=== PATIENT | female | born 1995 | race Caucasian/White ===

== ENCOUNTER 2017-03-03 11:49 | Emergency (ER) | payer MEDICAID ==
[~2017-03-03] VITALS: Ht 160 cm; Wt 90.8 kg
[~2017-03-03 11:49] MED LIST: ALBU-136 IH; BECL0.0464 INH; PRON IH
[2017-03-03 11:53] VITALS: BP 146/81
--- NOTE | 2017-03-03 12:30 | NUR ---
PATIENT TO ER BED 8.
--- NOTE | 2017-03-03 12:35 | NUR ---
21F BIB SELF C/O SHORTNESS OF BREATH X 3 DAYS; BL WHEEZES HEARD ON INSPIRATION/EXPIRATION; PT C/O PRODUCTIVE COUGH W/ PHLEGM X 1 WEEK; HX:ASTHMA; PT C/O MID-STERNAL CHEST PRESSURE, RADIATING TO BL BACK, 10/10 X 3 DAYS; A&OX4, PT C/O NAUSEA X YESTERDAY, BUT DENIES VOMITING/DIARRHEA AT THIS TIME; ABDOMEN SOFT, NON-TENDER, ACTIVE BOWEL SOUNDS X4 QAUDRANTS; STEADY GAIT; PT STATES GAVE VAGINAL 2 WEEKS AGO AT [facility] W/ NO ISSUES; PT RESTING IN BED W/ HOB ELEVATED AND IN LOWEST POSITION; POSITIONED FOR COMFORT; ER MD MADE AWARE OF STATUS. WILL CONTINUE TO MONITOR.
--- NOTE | 2017-03-03 13:00 | NUR ---
Patient being evaluated by physician at bedside.
--- NOTE | 2017-03-03 13:02 | NUR ---
Gene trinh in [facility] - 03/03/17 at 1311 by SELIN PT AMBULATED TO BED 8 AT THIS TIME.
[2017-03-03] MEDS ORDERED: ALBUTEROL SULFATE/IPRATROPIU 3 ML SOL IH ONE (13:15)
[2017-03-03] MEDS ORDERED: predniSONE 20 MG TAB PO ONE ×3 (13:15)
--- NOTE | 2017-03-03 14:55 | NUR ---
Patient appears to be resting comfortably in bed. Vital Signs within normal limits. Respirations even and unlabored. WILL CONTINUE TO MONITOR.
[2017-03-03 15:58] VITALS: BP 128/56
--- NOTE | 2017-03-03 15:58 | NUR ---
Patient discharged with v/s stable. Written and verbal after care instructions given and explained. Patient alert, oriented and verbalized understanding of instructions. Ambulatory with steady gait. All questions addressed prior to discharge. ID band removed. Patient advised to follow up with PMD. Rx of ALBUTEROL SULFATE, VENTOLIN HFA, MEDROL 4MG & QVAR given. Patient educated on indication of medication including possible reaction and side effects. Opportunity to ask questions provided and answered.
== END 2017-03-03 15:58 | disposition home or self-care (01) ==
LOC: MED 11:49
DX: O99.53 Diseases of the respiratory system complicating the puerperium (principal); J45.901 Unspecified asthma with (acute) exacerbation; J44.9 Chronic obstructive pulmonary disease, unspecified
CPT/HCPCS: 94640; 99284; J7512; J7620

== ENCOUNTER 2017-03-22 03:30 | Emergency (ER) | payer MEDICAID ==
[~2017-03-22] VITALS: Ht 160 cm; Wt 93.0 kg
[~2017-03-22 03:30] MED LIST changes: -ALBU-136 IH; +ALBUTEROL0.09 MG/A1; -BECL0.0464 INH; +CIPRO250 MG PO; +PROAIR HFA0.09 MG/Ac IH; -PRON IH; +PROVENTIL0.09 MG/Ac IH; +PROVENTIL2.5 MG/3 M IH; +PROVENTIL2.5 MG/3 M INH; +QVAR HFA MDI7.3 G1 INH; +ZOFRAN ODT4 MG PO
[2017-03-22 03:33] VITALS: BP 132/69
--- NOTE | 2017-03-22 03:40 | NUR ---
TO ER BED 3
--- NOTE | 2017-03-22 03:43 | NUR ---
Patient being evaluated by physician at bedside.
[2017-03-22] MEDS ORDERED: MAG SULF 2000 MG/WATER PREMIX 50 ML IV ONE (03:50)
[2017-03-22] MEDS ORDERED: methylPREDNISolone SS 125 MG/2 ML VIAL IVP ONE (03:50)
[2017-03-22] MEDS ORDERED: ALBUTEROL SULFATE/IPRATROPIU 3 ML SOL IH ONE (03:50)
--- NOTE | 2017-03-22 03:50 | NUR ---
PATIENT PRESENTS TO ED WITH C/O CHEST HURTING WHEN COUGHS. COUGH X 1 WEEK. HAS TRIED USING INHALER AND BREATHING TREATMENT AT HOME WITH NO RELIEF. . PT DENIES N/V/D; SKIN IS PINK/WARM/DRY; AAOX4 WITH EVEN AND STEADY GAIT; LUNGS CLEAR BL; HR EVEN AND REGULAR; PT DENIES ANY FEVER AT THIS TIME; PATIENT STATES PAIN OF 10/10 AT THIS TIME; VSS; PATIENT POSITIONED FOR COMFORT; HOB ELEVATED; BEDRAILS UP X2; BED DOWN. ER MD MADE AWARE OF PT STATUS.
--- NOTE | 2017-03-22 04:00 | NUR ---
PIV STARTED AND LABS DRAWN.
--- NOTE | 2017-03-22 04:05 | NUR ---
Respiratory Therapist at bedside for respiratory intervention. Patient tolerated .
--- NOTE | 2017-03-22 04:30 | NUR ---
XRAY DONE AT BEDSIDE
--- NOTE | 2017-03-22 06:24 | NUR ---
Patient discharged with v/s stable. Written and verbal after care instructions given and explained. Patient alert, oriented and verbalized understanding of instructions. Ambulatory with steady gait. All questions addressed prior to discharge. ID band removed. Patient advised to follow up with PMD. Rx of MEDROL, ALBUTEROL SULFATE, PULMICORT FLEXHALER AND AZITHROMYCIN given. Patient educated on indication of medication including possible reaction and side effects. Opportunity to ask questions provided and answered.
[2017-03-22 06:26] VITALS: BP 128/70
== END 2017-03-22 06:26 | disposition home or self-care (01) ==
LOC: MED 03:30
DX: J45.901 Unspecified asthma with (acute) exacerbation (principal)
CPT/HCPCS: 36415; 71010; 80053; 84484; 85025; 94640; 96365; 96366; 96375; 99285; J2930; J3475; J7030; J7620; Q0092

== ENCOUNTER 2017-05-05 16:52 | Emergency (ER) | payer MEDICAID ==
[~2017-05-05] VITALS: Ht 160 cm; Wt 93.9 kg
[~2017-05-05 16:52] MED LIST changes: +ALBU-136 IH; -ALBUTEROL0.09 MG/A1; +BECL0.0464 INH; -CIPRO250 MG PO; -PROAIR HFA0.09 MG/Ac IH; +PRON IH; -PROVENTIL0.09 MG/Ac IH; -PROVENTIL2.5 MG/3 M IH; -PROVENTIL2.5 MG/3 M INH; -QVAR HFA MDI7.3 G1 INH; -ZOFRAN ODT4 MG PO
[2017-05-05 16:58] VITALS: BP 145/92
--- NOTE | 2017-05-05 20:30 | NUR ---
TO ER BED 8
--- NOTE | 2017-05-05 20:44 | NUR ---
21Y/F PATIENT PRESENTS TO ED WITH C/O SOB/COUGH X 2 DAYS . PT STATESHX. ASTHMA, 2 SAYS STARTED HAVING SOB WITH COUGH, NO RELIEF BY USING INHALER. DENIES N/V/D; SKIN IS PINK/WARM/DRY; AAOX4 WITH EVEN AND STEADY GAIT; LUNGS WHEEZES BL; HR EVEN AND REGULAR; PT DENIES ANY FEVER, OR COUGH AT THIS TIME; C/O CHEST TIGHNESS, PATIENT STATES PAIN OF 9/10 AT THIS TIME; VSS; PATIENT POSITIONED FOR COMFORT; HOB ELEVATED; BEDRAILS UP X2; BED DOWN. ER MD MADE AWARE OF PT STATUS.
[2017-05-05] MEDS ORDERED: ALBUTEROL SULFATE/IPRATROPIU 3 ML SOL IH ONE ×2 (21:05→21:28)
[2017-05-05] MEDS ORDERED: methylPREDNISolone SS 125 MG in WATER STERILE 2 ML IM ONE (21:05)
[2017-05-05] MEDS ORDERED: methylPREDNISolone SS 125 MG/2 ML VIAL ONE (21:29)
[2017-05-05 21:55] VITALS: BP 136/92
--- NOTE | 2017-05-05 21:55 | NUR ---
Patient discharged with v/s stable. Written and verbal after care instructions given and explained. Patient alert, oriented and verbalized understanding of instructions. Ambulatory with steady gait. All questions addressed prior to discharge. ID band removed. Patient advised to follow up with PMD. Rx of QVar inhaler, Albuterol inhaler, and Albuterol nebulizer doses given. Patient educated on indication of medication including possible reaction and side effects. Opportunity to ask questions provided and answered.
== END 2017-05-05 21:55 | disposition home or self-care (01) ==
LOC: MED 16:52
DX: J45.901 Unspecified asthma with (acute) exacerbation (principal)
CPT/HCPCS: 71010; 94640; 96372; 99283; J2930; J7620; 99284

== ENCOUNTER 2017-06-16 10:35 | Emergency (ER) | payer MEDICAID ==
[~2017-06-16] VITALS: Ht 160 cm; Wt 92.1 kg
[2017-06-16 10:37] VITALS: BP 152/89
--- NOTE | 2017-06-16 10:45 | NUR ---
Patient ambulated to bed 04.
--- NOTE | 2017-06-16 10:46 | NUR ---
21F BIB SELF C/O COUGH AT NIGHT,HEADACHE & MID-STERNAL CHEST PAIN X 2 DAYS; PT STATES WAS DYING HAIR WHEN PAIN OCCURED. HX: ASTHMA. DENIES N/V/D; SKIN IS PINK/WARM/DRY; AAOX4 WITH EVEN AND STEADY GAIT; LUNGS WHEEZING BL; HR EVEN AND REGULAR; PT DENIES ANY FEVER, CP, SOB, OR COUGH AT THIS TIME; PATIENT STATES PAIN OF 8/10 AT THIS TIME; VSS; PATIENT POSITIONED FOR COMFORT; HOB ELEVATED; BEDRAILS UP X2; BED DOWN. ER MD MADE AWARE OF PT STATUS.
--- NOTE | 2017-06-16 11:02 | NUR ---
Gene trinh in EDM - 06/16/17 at 1103 by MED1 L BIG TOE NAIL EXTRACTION & SUTURE L FOOT DONE BY HARRIET BUCKLEY. PT TOLERATED PROCEDURE WELL.
--- NOTE | 2017-06-16 11:16 | NUR ---
Dr. Grewal evaluating patient at bedside.
[2017-06-16] MEDS ORDERED: predniSONE 20 MG TAB PO ONE (11:20)
[2017-06-16] MEDS ORDERED: ALBUTEROL 0.083% 2.5 MG/3 ML NEBU INH ONE (11:20)
[2017-06-16] MEDS ORDERED: ALBUTEROL SULFATE/IPRATROPIU 3 ML SOL IH ONE (11:20)
--- NOTE | 2017-06-16 11:24 | NUR ---
GAVE MED ORDER. NO N/V NOTED AT THIS TIME.
--- NOTE | 2017-06-16 11:31 | NUR ---
RT AT BEDSIDE FOR 1ST BREATHING TREATMENT.
--- NOTE | 2017-06-16 11:32 | NUR ---
ADMITTING DX: CHEST PAIN HX: ASTHMA LOC AWAKE AND ALERT RESPONSIVE TO WAFER CUTTER VERBAL COMMANDS IN HFW POSIION SKIN TONE PINK EDUCATION PROVIDED TO PATIENT WITH ACKNOWLEDGEMENT ON HHN THERAPY AND RESPIRATORY DRUGS HHN THERAPY GIVEN ORDERED ENCOURAGED PATIENT FOR DEEP BREATHING DURING THERAPY TOLERATED WELL WITH ADVERES REACTION NOTED
--- NOTE | 2017-06-16 11:49 | NUR ---
Patient appears to be resting comfortably in bed. BP 134/68, PULSE OX 96 W/ OXIGEN 2L/M NC. Respirations even and unlabored.WILL CONTINUE TO MONITOR. Addendum: 06/16/17 at 1151 by MED1 PT STS CHEST PAIN 01/29.
[2017-06-16] MEDS ORDERED: KETOROLAC 60 MG/2 ML VIAL IM ONE (11:55)
--- NOTE | 2017-06-16 12:00 | NUR ---
PT C/O CHEST PAIN 01/29. ADMINISTERED PAIN MED ORDER.
[2017-06-16 12:15] VITALS: BP 128/68
--- NOTE | 2017-06-16 12:16 | NUR ---
Patient discharged with 142/77; DENIES HEADACHE OR DIZZINESS AT THIS TIME. MD AWARE. Written and verbal after care instructions given and explained. Patient alert, oriented and verbalized understanding of instructions. Ambulatory with steady gait. All questions addressed prior to discharge. ID band removed. Patient advised to follow up with PMD. Rx of ALBUTEROL 90MCG/ACTUATION AEROSOL, PREDNISONE & ALBUTEROL SULFATE0.083% SOLUTION FOR INHALOOOATION given. Patient educated on indication of medication including possible reaction and side effects. Opportunity to ask questions provided and answered.
== END 2017-06-16 12:16 | disposition home or self-care (01) ==
LOC: MED 10:35
DX: J45.901 Unspecified asthma with (acute) exacerbation (principal)
CPT/HCPCS: 81002; 81025; 93005; 94640; 96372; 99284; J1885; J7512; J7613; J7620

== ENCOUNTER 2017-07-11 02:13 | Emergency (ER) | payer MEDICAID ==
[~2017-07-11] VITALS: Ht 160 cm; Wt 91.6 kg
[2017-07-11 02:21] VITALS: BP 130/79
--- NOTE | 2017-07-11 02:25 | NUR ---
To Bed 6
--- NOTE | 2017-07-11 03:00 | NUR ---
Patient being evaluated by physician at bedside.
[2017-07-11] MEDS ORDERED: KETOROLAC 60 MG/2 ML VIAL IM ONE (03:05)
[2017-07-11 03:30] VITALS: BP 130/79
--- NOTE | 2017-07-11 03:30 | NUR ---
Patient discharged with v/s stable. Written and verbal after care instructions given and explained. Patient alert, oriented and verbalized understanding of instructions. Ambulatory with steady gait. All questions addressed prior to discharge. ID band removed. Patient advised to follow up with PMD. Rx of MOTRIN, CORTISPORIN given. Patient educated on indication of medication including possible reaction and side effects. Opportunity to ask questions provided and answered.
== END 2017-07-11 03:30 | disposition home or self-care (01) ==
LOC: MED 02:13
DX: H60.92 Unspecified otitis externa, left ear (principal); J02.9 Acute pharyngitis, unspecified; J45.909 Unspecified asthma, uncomplicated
CPT/HCPCS: 96372; 99283; J1885

== ENCOUNTER 2017-07-26 06:25 | Emergency (ER) | payer MEDICAID ==
[~2017-07-26] VITALS: Ht 160 cm; Wt 94.9 kg
[2017-07-26 06:33] VITALS: BP 134/90
[2017-07-26] MEDS ORDERED: ALBUTEROL SULFATE/IPRATROPIU 3 ML SOL IH ONE ×2 (06:40→06:55)
[2017-07-26] MEDS ORDERED: predniSONE 20 MG TAB PO ONE (06:45)
--- NOTE | 2017-07-26 06:46 | NUR ---
PATIENT PRESENTS TO ED WITH C/O CP WHEN COUGH X 3 DAYS . PT DENIES N/V/D; SKIN IS PINK/WARM/DRY; AAOX4 WITH EVEN AND STEADY GAIT; LUNGS CLEAR BL; HR EVEN AND REGULAR; PT DENIES ANY FEVER, SOB, AT THIS TIME; PATIENT STATES PAIN OF 10/10 AT THIS TIME; VSS; PATIENT POSITIONED FOR COMFORT; HOB ELEVATED; BEDRAILS UP X2; BED DOWN. ER MD MADE AWARE OF PT STATUS.
[2017-07-26] MEDS ORDERED: predniSONE 10 MG TAB PO ONE (06:55)
[2017-07-26] MEDS ORDERED: predniSONE 10 MG TAB ONE (06:56)
--- NOTE | 2017-07-26 07:04 | NUR ---
RECEIVE REPORT FROM DARRELL SOLOMON. PT STS 0/10 PAIN.Patient appears to be resting comfortably in bed. BP 133/72; DENIES HEADACHE OR DIZINESS, MD AWARE. Respirations even and unlabored.WILL CONTINUE TO MONITOR.
--- NOTE | 2017-07-26 07:12 | NUR ---
RT AT BEDSIDE FOR 2ND BREATHING TREATMENT.
[2017-07-26 07:22] VITALS: BP 129/78
--- NOTE | 2017-07-26 07:22 | NUR ---
Patient discharged with v/s stable. Written and verbal after care instructions given and explained. Patient alert, oriented and verbalized understanding of instructions. Ambulatory with steady gait. All questions addressed prior to discharge. ID band removed. Patient advised to follow up with PMD. Rx of ALBUTEROL & PREDNISONE given. Patient educated on indication of medication including possible reaction and side effects. Opportunity to ask questions provided and answered.
== END 2017-07-26 07:22 | disposition home or self-care (01) ==
LOC: MED 06:25
DX: J45.901 Unspecified asthma with (acute) exacerbation (principal); R03.0 Elevated blood-pressure reading, without diagnosis of hypertension
CPT/HCPCS: 93005; 94640; 94760; 99284; J7512; J7620

== ENCOUNTER 2017-08-14 11:26 | Emergency (ER) | payer MEDICAID ==
[~2017-08-14] VITALS: Ht 160 cm; Wt 91.6 kg
[2017-08-14 11:31] VITALS: BP 124/75
[2017-08-14] MEDS ORDERED: NACL 0.9% 1,000 ML IV ONE (11:50)
[2017-08-14] MEDS ORDERED: ALBUTEROL SULFATE/IPRATROPIU 3 ML SOL IH ONE (11:50)
[2017-08-14] MEDS ORDERED: methylPREDNISolone SS 125 MG in WATER STERILE 2 ML IV ONE (11:50)
[2017-08-14 11:59] LABS: BASOPHILS % (AUTO) 0.3 % (0.0-2.0); EOSINOPHILS # (AUTO) 0.6 K/uL (0-0.4); HEMATOCRIT 40.8 % (36-48); HEMOGLOBIN 13.1 g/dL (12.0-16.0); LYMPHOCYTES % (AUTO) 32.7 % (20.5-51.1); MEAN CORPUSCULAR HEMOGLOBIN 25 pg (27-31); MEAN CORPUSCULAR HGB CONC 32 g/dL (33-37); MEAN CORPUSCULAR VOLUME 78 fL (80-94); MONOCYTES # (AUTO) 0.4 K/uL (0.8-1.0); MONOCYTES % (AUTO) 4.7 % (1.7-9.3); NEUTROPHILS # (AUTO) 5.2 K/uL (1.8-7.7); NEUTROPHILS % (AUTO) 55.3 % (42.2-75.2); PLATELET COUNT (AUTO) 250 K/uL (140-450); RED BLOOD CELL COUNT(AUTO) 5.25 MIL/uL (4.20-5.40); RED CELL DISTRIBUTION WIDTH 14.1 % (11.6-13.7); WHITE BLOOD COUNT (AUTO) 9.2 K/uL (4.8-10.8)
[2017-08-14 12:14] LABS: CARBON DIOXIDE 24.4 mmol/L (21-32); CREATININE 0.8 mg/dL (0.6-1.3); POTASSIUM 3.4 mmol/L (3.5-5.1)
[2017-08-14 12:20] LABS: ALBUMIN 3.5 g/dL (3.4-5.0); TOTAL BILIRUBIN 0.2 mg/dL (0.0-1.0)
[2017-08-14 13:30] VITALS: BP 122/78
== END 2017-08-14 13:30 | disposition home or self-care (01) ==
LOC: MED 11:26
DX: J45.901 Unspecified asthma with (acute) exacerbation (principal); R07.89 Other chest pain; Z79.899 Other long term (current) drug therapy
CPT/HCPCS: 36415; 80053; 83880; 84484; 85025; 85379; 94640; 96361; 96374; 99284; J2930; J7030; J7620

== ENCOUNTER 2017-08-29 07:24 | Emergency (ER) | payer MEDICAID ==
[~2017-08-29] VITALS: Ht 160 cm; Wt 98.5 kg
[2017-08-29 07:28] VITALS: BP 149/86
--- NOTE | 2017-08-29 07:30 | NUR ---
PT AMBULATED TO BED 5.
[2017-08-29] MEDS ORDERED: predniSONE 20 MG TAB PO ONE (07:40)
[2017-08-29] MEDS ORDERED: ALBUTEROL SULFATE/IPRATROPIU 3 ML SOL IH ONE (07:40)
--- NOTE | 2017-08-29 07:45 | NUR ---
Patient being evaluated by physician at bedside.
--- NOTE | 2017-08-29 07:51 | NUR ---
22/F PRESENT TO ER C/O DIFFICULTY BREATHING x TODAY @ 0500. PT STATES SHE HAS HX OF ASTHMA. USING RX INHALER AND BREATHING TREATMENT AT HOME, BUT DOES NOT HELP. PT DENIES PAIN AT THIS TIME. AAOx4, PERRJOHANA. VSS . ERMD NOTIFIED OF PATIENT STATUS.
--- NOTE | 2017-08-29 07:58 | NUR ---
ADMITTING DX: ADULT-ASTHMA AWAKE AND ALERT RESPONSIVE TO DATA REPORTING ANALYST VERBAL COMMANDS HFW POSITION EDUCATION PROVIDED WITH ACKNOWLEDGEMENT ON HHN THERAPY AND RESPIRATORY DRUG HHN THERAPY GIVEN ORDERED ENCOURAGED PATIENT FOR DEEP BREATHING AND COUGH DURING THERAPY TOLERATED WELL WITHOUT INCIDENT
--- NOTE | 2017-08-29 08:02 | NUR ---
CUSTOMER FIELD REPRESENTATIVE AT BEDSIDE.
--- NOTE | 2017-08-29 09:16 | NUR ---
Patient discharged with v/s stable. Written and verbal after care instructions given and explained. Patient alert, oriented and verbalized understanding of instructions. Ambulatory with steady gait. All questions addressed prior to discharge. ID band removed. Patient advised to follow up with PMD. Rx of VENTOLIN HFA 90MCG/ACTUATION, QVAR 80MCG/ACTUATION AND MEDROL DOSEPAK 4MG TABLET given. Patient educated on indication of medication including possible reaction and side effects. Opportunity to ask questions provided and answered.
[2017-08-29 09:17] VITALS: BP 132/81
== END 2017-08-29 09:16 | disposition home or self-care (01) ==
LOC: MED 07:24
DX: J45.901 Unspecified asthma with (acute) exacerbation (principal)
CPT/HCPCS: 94640; 99283; J7512; J7620

== ENCOUNTER 2017-09-24 05:39 | Emergency (ER) | payer MEDICAID ==
[~2017-09-24] VITALS: Ht 160 cm; Wt 99.1 kg
[2017-09-24 05:42] VITALS: BP 139/90
[2017-09-24] MEDS ORDERED: predniSONE 20 MG TAB PO ONE (05:50)
[2017-09-24] MEDS ORDERED: ALBUTEROL SULFATE/IPRATROPIU 3 ML SOL IH ONE (05:50)
--- NOTE | 2017-09-24 05:50 | NUR ---
Patient ambulated to bed 6. RN evaluating patient at bedside.
--- NOTE | 2017-09-24 05:59 | NUR ---
RT at bedside receiving breathing treatment.
--- NOTE | 2017-09-24 06:00 | NUR ---
22/F c/o SOB and chest pain only with cough at 0500 this morning. Pt c/o tightness to chest, only with cough. Wheezing throughout. No labored breathing. No use of accessory muscels. Speaking full sentences. AOX4, ambulatory with steady gait. VSS.
--- NOTE | 2017-09-24 06:07 | NUR ---
Dr. Conway evaluating patient at bedside.
--- NOTE | 2017-09-24 06:31 | NUR ---
X-Ray at bedside.
[2017-09-24 07:11] VITALS: BP 132/80
--- NOTE | 2017-09-24 07:11 | NUR ---
Patient discharged with v/s stable. Written and verbal after care instructions given and explained. Patient alert, oriented and verbalized understanding of instructions. Ambulatory with steady gait. All questions addressed prior to discharge. ID band removed. Patient advised to follow up with PMD. Rx of Azithromycin, Albuterol Sulfate, Prednisone given. Patient educated on indication of medication including possible reaction and side effects. Opportunity to ask questions provided and answered.
== END 2017-09-24 07:11 | disposition home or self-care (01) ==
LOC: MED 05:39
DX: J45.901 Unspecified asthma with (acute) exacerbation (principal)
CPT/HCPCS: 71010; 81025; 94640; 99283; J7512; J7620; Q0092

== ENCOUNTER 2017-10-07 04:35 | Emergency (ER) | payer MEDICAID ==
[~2017-10-07] VITALS: Ht 160 cm; Wt 100.2 kg
[2017-10-07 04:38] VITALS: BP 145/90
--- NOTE | 2017-10-07 04:46 | NUR ---
TO ER BED 12
--- NOTE | 2017-10-07 04:50 | NUR ---
Patient being evaluated by DR. ESCOBAR at bedside.
[2017-10-07] MEDS ORDERED: methylPREDNISolone SS 125 MG in WATER STERILE 2 ML IM ONE (04:55)
[2017-10-07] MEDS ORDERED: ALBUTEROL SULFATE/IPRATROPIU 3 ML SOL IH ONE ×2 (04:55→05:55)
--- NOTE | 2017-10-07 04:55 | NUR ---
22Y/F PT. PRESENTS TO ED WITH C/O CHEST PAIN X 2HRS. PT. STATES CHEST TIGHNESS WITH COUGH X 2 HRS. HX. ASTHMA, RUN OUT OF MED. AAO X4, AMBULATORY WITH STEADY GAIT. RESPIRATIONS ROOM AIR, EVEN AND UNLABORED, BL LUNGS WHEEZES, O2 SAT 99%. C/O CHEST TIGHNESS 05/31. VSS, ER MADE AWARE OF PT. STATUS.
[2017-10-07 06:19] VITALS: BP 130/81
--- NOTE | 2017-10-07 06:19 | NUR ---
Patient discharged with v/s stable. Written and verbal after care instructions given and explained. Patient alert, oriented and verbalized understanding of instructions. Ambulatory with steady gait. All questions addressed prior to discharge. ID band removed. Patient advised to follow up with PMD. Rx of ATROVENT 18 MCG/ACTUATION INHALATION, PREDNISONE 50 MG given. Patient educated on indication of medication including possible reaction and side effects. Opportunity to ask questions provided and answered.
== END 2017-10-07 06:19 | disposition home or self-care (01) ==
LOC: MED 04:35
DX: J20.9 Acute bronchitis, unspecified (principal); R03.0 Elevated blood-pressure reading, without diagnosis of hypertension; J45.909 Unspecified asthma, uncomplicated; Z79.899 Other long term (current) drug therapy
CPT/HCPCS: 71010; 93005; 94640; 96372; 99284; J2930; J7620; Q0092

== ENCOUNTER 2017-10-18 07:03 | Emergency (ER) | payer MEDICAID ==
[~2017-10-18] VITALS: Ht 162.6 cm; Wt 10.2 kg
[2017-10-18 07:19] VITALS: BP 128/76
--- NOTE | 2017-10-18 07:37 | NUR ---
PATIENT PRESENTS TO ED WITH cough, sob, wheezing . PT STATES . DENIES N/V/D; SKIN IS PINK/WARM/DRY; AAOX4 WITH EVEN AND STEADY GAIT; LUNGS CLEAR BL; HR EVEN AND REGULAR; PATIENT STATES PAIN OF 0/10 AT THIS TIME; VSS; PATIENT POSITIONED FOR COMFORT; HOB ELEVATED; BEDRAILS UP X2; BED DOWN. ER MD MADE AWARE OF PT STATUS.
[2017-10-18] MEDS: predniSONE 20 MG TAB PO ONE (07:43)
[2017-10-18] MEDS: ALBUTEROL 0.083% 2.5 MG/3 ML NEBU INH ONE (07:46)
[2017-10-18] MEDS: IPRATROPIUM 0.02% 0.5 MG/2.5 ML NEBU INH ONE (07:46)
--- NOTE | 2017-10-18 09:02 | NUR ---
Patient discharged with v/s stable. Written and verbal after care instructions given and explained. Patient alert, oriented and verbalized understanding of instructions. Ambulatory with steady gait. All questions addressed prior to discharge. ID band removed. Patient advised to follow up with PMD. Rx of prednisone/albuterol given. Patient educated on indication of medication including possible reaction and side effects. Opportunity to ask questions provided and answered. pt denies sob--speaking with me in full clear speech, no accessory muscle use noted.
[2017-10-18 09:03] VITALS: BP 144/88
== END 2017-10-18 09:02 | disposition home or self-care (01) ==
LOC: MED 07:03
DX: J45.901 Unspecified asthma with (acute) exacerbation (principal); J06.9 Acute upper respiratory infection, unspecified
CPT/HCPCS: 94640; 99283; J7512; J7613; J7644

== ENCOUNTER 2017-10-26 11:52 | Emergency (ER) | payer MEDICAID ==
[~2017-10-26] VITALS: Ht 160 cm; Wt 99.8 kg
[2017-10-26 11:56] VITALS: BP 159/83
--- NOTE | 2017-10-26 12:36 | NUR ---
Patient to bed 08.
--- NOTE | 2017-10-26 12:41 | NUR ---
PT IS 22 Y/O HF, CAME IN WITH HER FOR C/O SHORTNESS OF BREATH SINCE THIS MORNING, PT HX ASTHMA, CURRENTLY TAKING MED FOR ASTHMA VENTOLIN AT HOME, PT IS WHEEZIG ON INS AND OUT DURING AUSCULTATION. PT IS BREATHING EVEN AD REGULAR. IS AA/O X4.
--- NOTE | 2017-10-26 13:15 | NUR ---
Dr. Le evaluating patient at bedside.
[2017-10-26] MEDS ORDERED: IPRATROPIUM 0.02% 0.5 MG/2.5 ML NEBU INH ONE (13:20)
[2017-10-26] MEDS ORDERED: ALBUTEROL 0.083% 2.5 MG/3 ML NEBU INH ONE (13:20)
[2017-10-26] MEDS ORDERED: predniSONE 20 MG TAB PO ONE (13:20)
--- NOTE | 2017-10-26 13:31 | NUR ---
Respiratory Therapist at bedside for respiratory intervention.
[2017-10-26 14:33] VITALS: BP 118/76
--- NOTE | 2017-10-26 14:33 | NUR ---
Patient discharged with v/s stable. Written and verbal after care instructions given and explained. Patient alert, oriented and verbalized understanding of instructions. Ambulatory with steady gait. All questions addressed prior to discharge. ID band removed. Patient advised to follow up with PMD. Rx of PREDNISONE& VENTOLIN given. Patient educated on indication of medication including possible reaction and side effects. Opportunity to ask questions provided and answered.
== END 2017-10-26 14:33 | disposition home or self-care (01) ==
LOC: MED 11:52
DX: J45.901 Unspecified asthma with (acute) exacerbation (principal); R03.0 Elevated blood-pressure reading, without diagnosis of hypertension; R94.31 Abnormal electrocardiogram [ECG] [EKG]; Z79.891 Long term (current) use of opiate analgesic
CPT/HCPCS: 93005; 94640; 99283; J7512; J7613; J7644

== ENCOUNTER 2018-12-24 22:25 | Emergency (ER) | payer MEDICAID ==
[~2018-12-24] VITALS: Ht 160 cm; Wt 100.2 kg
[2018-12-24 22:34] VITALS: BP 134/87
--- NOTE | 2018-12-24 22:40 | NUR ---
PATIENT PRESENTS TO ED WITH C/O OF COUGH NON -PRODUCTIVE SINCE TODAY . PT STATES SHE HAD CHEST PAIN WHEN COUGHING . DENIES N/V/D; SKIN IS PINK/WARM/DRY; AAOX4 WITH EVEN AND STEADY GAIT; LUNGS CLEAR BL; HR EVEN AND REGULAR; PT DENIES ANY FEVER, CP, SOB, OR COUGH AT THIS TIME; PATIENT STATES PAIN OF 0/10 AT THIS TIME; VSS; PATIENT POSITIONED FOR COMFORT; HOB ELEVATED; BEDRAILS UP X2; BED DOWN. ER MD MADE AWARE OF PT STATUS.
--- NOTE | 2018-12-24 22:46 | NUR ---
EKG PERFORMED AT BEDSIDE. PT COVERED IN GOWN DURING PROCEDURE
[2018-12-24] MEDS ORDERED: ALBUTEROL SULFATE/IPRATROPIU 3 ML SOL IH ONE (23:15)
--- NOTE | 2018-12-24 23:45 | NUR ---
Patient discharged with v/s stable. Written and verbal after care instructions given and explained. Patient alert, oriented and verbalized understanding of instructions. Ambulatory with steady gait. All questions addressed prior to discharge. ID band removed. Patient advised to follow up with PMD. Rx of given Prednisone, Azithromyzin. Patient educated on indication of medication including possible reaction and side effects. Opportunity to ask questions provided and answered.
[2018-12-25 00:48] VITALS: BP 106/64
== END 2018-12-24 23:45 | disposition home or self-care (01) ==
LOC: MED 22:25
DX: J20.9 Acute bronchitis, unspecified (principal); R03.0 Elevated blood-pressure reading, without diagnosis of hypertension; J45.909 Unspecified asthma, uncomplicated; Z79.899 Other long term (current) drug therapy
CPT/HCPCS: 71045; 93005; 94640; 99283; J7620; Q0092; 81002; 81025

== ENCOUNTER 2019-05-10 01:08 | Emergency (ER) | payer MEDICAID ==
[~2019-05-10] VITALS: Ht 160 cm; Wt 102.1 kg
[2019-05-10 01:20] VITALS: BP 135/78
--- NOTE | 2019-05-10 01:23 | NUR ---
TO LOBBY A/W BED AMBULATORY
--- NOTE | 2019-05-10 03:26 | NUR ---
PT AMBULATED TO BED 1
--- NOTE | 2019-05-10 04:03 | NUR ---
23 Y/O F PRESENTED TO ED WITH C/O R EAR PAIN X 3DAYS. 10/10 PAIN, PAIN DOESNT RADIATE. C/O NASAL CONGESTION, FEVER, AND CHILLS ACCOMPANYING THE R EAR PAIN. NO REDNESS NOTED TO R EAR. TYMPANIC MEMBRANE INTACT. NO DISCHARGE NOTED. SELF MEDICATED WITH TYLENOL AT MIDNIGHT. ERMD NOTIFIED. WILL CONTINUE TO MONITOR.
[2019-05-10] MEDS ORDERED: KETOROLAC 60 MG/2 ML VIAL IM ONE (04:50)
--- NOTE | 2019-05-10 05:11 | NUR ---
Patient discharged with v/s stable. Written and verbal after care instructions given and explained. Patient alert, oriented and verbalized understanding of instructions. Ambulatory with steady gait. All questions addressed prior to discharge. ID band removed. Patient advised to follow up with PMD. Rx of Prednisone, motrin, and cortisporin given. Patient educated on indication of medication including possible reaction and side effects. Opportunity to ask questions provided and answered.
== END 2019-05-10 05:11 | disposition home or self-care (01) ==
LOC: MED 01:08
DX: H60.91 Unspecified otitis externa, right ear (principal); J45.909 Unspecified asthma, uncomplicated; Z79.899 Other long term (current) drug therapy
CPT/HCPCS: 96372; 99283; J1885

== ENCOUNTER 2019-12-28 11:54 | Inpatient (IN) | payer MEDICAID ==
[~2019-12-28] VITALS: Ht 160 cm; Wt 97.5 kg
[2019-12-28 12:08] VITALS: BP 107/55
--- NOTE | 2019-12-28 12:21 | NUR ---
PATIENT AMBULATED TO BED 2.
--- NOTE | 2019-12-28 12:28 | NUR ---
C/O BILTERAL LOWER ABDOMINAL PAIN 10/10 WITH NAUSEA X TODAY. DENIES DYSURIA. ABDOMEN TENDER TO TOUCH IN LOWER QUADRANTS. BOWEL SOUNDS ACTIVE IN ALL 4 QUADRANTS. ABDOMEN SOFT AND ROUND. PT HR 106. PT ALERT AND AWAKE. AMBUALTORY WITH STEADY GAIT. PT DENIES VOMITING OR DIARRHEA. MED HX: ASTHMA
--- NOTE | 2019-12-28 12:30 | NUR ---
PT GAURDING BEHAVIOR, FACIAL GRIMACING
--- NOTE | 2019-12-28 12:33 | NUR ---
PT AMB TO RESTROOM FOR URINE
--- NOTE | 2019-12-28 12:48 | NUR ---
DR MANCINI AT BEDSIDE
--- NOTE | 2019-12-28 12:59 | NUR ---
REPORT GIVEN TO ALVIN RAMÍREZ
[2019-12-28] MEDS ORDERED: ONDANSETRON 4 MG/2 ML VIAL IVP ONE (13:00)
[2019-12-28] MEDS ORDERED: MORPHINE SULFATE 4 MG/ML SYR IVP ONE ×2 (13:00→15:10)
--- NOTE | 2019-12-28 13:31 | NUR ---
ULTRASOUND AT BESIDE
[2019-12-28 14:03] LABS: HEMATOCRIT 47.9 % (36-48); HEMOGLOBIN 15.4 g/dL (12.0-16.0); MEAN CORPUSCULAR HEMOGLOBIN 27 pg (27-31); MEAN CORPUSCULAR HGB CONC 32 g/dL (33-37); MEAN CORPUSCULAR VOLUME 82.2 fL (80-94); PLATELET COUNT (AUTO) 328 K/uL (140-450); RED BLOOD CELL COUNT(AUTO) 5.83 MIL/uL (4.20-5.40)
[2019-12-28 14:19] LABS: ALBUMIN 4.6 g/dL (3.4-5.0); ANION GAP 13.7 (8-16); CARBON DIOXIDE 25.4 mmol/L (21-32); CREATININE 0.7 mg/dL (0.6-1.3); POTASSIUM 4.1 mmol/L (3.5-5.1); TOTAL BILIRUBIN 0.3 mg/dL (0.0-1.0)
[2019-12-28 14:25] LABS: WHITE BLOOD COUNT (AUTO) 27.2 K/uL (4.8-10.8)
[2019-12-28 14:26] LABS: EOSINOPHILS % (MANUAL) 2 % (0-4); LYMPHOCYTES % (MANUAL) 5 % (20-46); MONOCYTES % (MANUAL) 5 % (5-12)
--- NOTE | 2019-12-28 14:34 | NUR ---
CRITICAL LAB VALUE: WBC 27.[address] MANCINI
--- NOTE | 2019-12-28 14:52 | NUR ---
PT TRANSFERRED TO CT VIA RSANDWICH, CONSENT SIGNED AT BEDSIDE
--- NOTE | 2019-12-28 15:03 | NUR ---
PT BACK FROM CT
[2019-12-28] MEDS ORDERED: NACL 0.9% 1,000 ML IV ONE (15:10)
[2019-12-28] MEDS ORDERED: PIPERACILLIN/TAZOBACTAM 3.375 GM in DEXTROSE 5% 50 ML IV ONE (15:10)
[2019-12-28] MEDS ORDERED: PIPERACILLIN/TAZOBACTAM 3.375 GM VIAL IV ONE (15:17)
[2019-12-28] MEDS: DEXT 5% /NACL 0.9% 1,000 ML IV SCH (16:43)
[2019-12-28] MEDS ORDERED: LORazepam 2 MG/ML VIAL IM/IVP PRN (16:45)
[2019-12-28] MEDS ORDERED: ACETAMINOPHEN 325 MG TAB PO PRN (16:45)
[2019-12-28] MEDS ORDERED: MORPHINE SULFATE 2 MG/ML SYR IVP PRN (16:45)
[2019-12-28] MEDS ORDERED: ALBUTEROL SULFATE/IPRATROPIU 3 ML SOL IH PRN (17:10)
[2019-12-28 17:20] VITALS: BP 117/62
--- NOTE | 2019-12-28 17:20 | NUR ---
RECEIVED PATIENT FROM ED. REPORT GIVEN BY DARRELL ESQUIVEL. PATIENT TRANSPORTED VIA W/C, AMBULATED INTO THE BED. PATIENT IS ALERT, ORIENTED X4. INTRODUCED SELF TO PATIENT AND ROOM. IV INTACT AND PATENT TO RIGHT AC. DR. MENDENHALL AT BEDSIDE. PATIENT IN STABLE CONDITION. CALL LIGHT WITHIN REACH.
--- NOTE | 2019-12-28 17:23 | NUR ---
Patient will be admitted to care of [facility]. Admited to [facility]. Will go to room 111B. Belongings list completed. Report to JINNY RAMÍREZ.
[2019-12-28 18:00] LABS: PROTHROMBIN TIME 10.2 secs (10.8-13.4)
[2019-12-28] MEDS: HYDROcodone/APAP 5/325 MG 1 TAB TAB PO PRN ×2 (18:02→22:54)
[2019-12-28 18:11] LABS: MAGNESIUM 1.5 mg/dL (1.8-2.4); PHOSPHORUS 2.9 mg/dL (2.5-4.9); THYROID STIMULATING HORMONE 0.44 uIU/mL (0.34-3.74)
--- NOTE | 2019-12-28 18:57 | NUR ---
IV ANTIBIOTIC ROCEPHIN STARTED ORDERED. PATIENT IN STABLE CONDITION. WILL ENDORSE TO NIGHT NURSE FOR CONTINUITY OF CARE.
--- NOTE | 2019-12-28 19:10 | NUR ---
PATIENT IN STABLE CONDITION. REPORT GIVEN TO NIGHT NURSE FOR CONTINUITY OF CARE.
[2019-12-28] MEDS: ALBUTEROL SULFATE/IPRATROPIU 3 ML SOL IH SCH (19:19)
[2019-12-28] MEDS: BUDESONIDE 0.25 MG/2 ML NEBU INH SCH (19:19)
--- NOTE | 2019-12-28 19:30 | NUR ---
RECEIVED REPORT FORM JONELLE RAMÍREZ DAYSHIFT NURSE AT BEDSIDE FOR CONTINUITY OF CARE, PT IN STABLE CONDITION
[2019-12-28 20:00] VITALS: BP 123/74
--- NOTE | 2019-12-28 20:00 | NUR ---
PT IN BED, SHE IS AOX4 WITH SKIN INTACT. RIGHT F/A 22G INTACT AND RUNNING D5N/S AT 80MLS/HR. MAG RIDER 1ST BAG HUNG AND IS RUNNING AT 25MLS/HR. PT V/S FOLLOWS. T 97.2 P 87 R 20 B/P 119/62 02 97% ON ROOM AIR. PT SAYS PAIN IS TOLERABLE AT A 3 /10. PT EDUCATION PROVIDED CONCERNING HER DX OF DIVERTICULITIS. PT VERBALIZED UNDERSTANDING. ALL UNIVERSAL FALLS PRECAUTIONS IN PLACE.
[2019-12-28] MEDS: MAG SULF 2000 MG/WATER PREMIX 100 ML IV SCH ×2 (20:07→21:00)
[2019-12-28] MEDS: ONDANSETRON 4 MG/2 ML VIAL IM/IVP PRN (20:13)
--- NOTE | 2019-12-28 21:00 | NUR ---
ICE CHIPS OK PER MD LOBATO.
[2019-12-28 21:54] LABS: APPEARANCE,URINE CLEAR (CLEAR); BILIRUBIN,URINE NEGATIVE (NEGATIVE); BLOOD, URINE NEGATIVE (NEGATIVE); COLOR,URINE YELLOW (YELLOW); LEUKOCYTE ESTERASE ,URINE NEGATIVE (NEGATIVE); NITRITE, URINE NEGATIVE (NEGATIVE); UGLUCOSE NEGATIVE (NEGATIVE)
--- NOTE | 2019-12-28 22:00 | NUR ---
1ST BAG OF MAG RIDER DONE, FLAGYL HUNG AND RUINING ORDERED, PT C/O OF MODERATE PAIN IN ABDOMEN AND WAS GIVEN PO/PRN NORCO. ALL UNIVERSAL PRECAUTIONS IN PLACE.
[2019-12-28 22:02] LABS: BARBITURATE, URINE NEG. ng/ml (NEG <=200); BENZODIAZEPINE, URINE NEG. ng/mL (NEG <=200); CANNABINOID, URINE POS. ng/mL (NEG <=50); COCAINE, URINE NEG. ng/mL (NEG <=300); OPIATE, URINE NEG. ng/mL (NEG <=2000); PHENCYCLIDINE SCREEN,URINE NEG. ng/mL (NEG <=25)
[2019-12-28] MEDS: metroNIDAZOLE 500 MG/NS PREMIX 100 ML IV SCH (22:57)
--- NOTE | 2019-12-28 23:00 | NUR ---
2ND BAG OF MAG RIDER HUNG AND RUNNING ORDERED, NO S/S OF PAIN OR DISTRESS NOTED. V/S T 97.2 P 87 R 18 B/P 119/62 02 97% ON ROOM AIR. ALL UNIVERSAL FALLS PRECAUTIONS IN PLACE.
[2019-12-29] VITALS: BP 119/62
[2019-12-29] MEDS ORDERED: MAG SULF 2000 MG/WATER PREMIX 50 ML IV ONE (00:42)
--- NOTE | 2019-12-29 02:30 | NUR ---
PT IN BED ASLEEP NO S/*S OF PAIN OR DISTRESS NOTED. IV SITE INTACT AND FLUIDS ORDERED. ALL UNIVERSAL FALLS PRECAUTIONS IN PLACE.
[2019-12-29] MEDS: metroNIDAZOLE 500 MG/NS PREMIX 100 ML IV SCH ×3 (05:30→21:25)
[2019-12-29] MEDS: DEXT 5% /NACL 0.9% 1,000 ML IV SCH ×2 (05:34→17:43)
--- NOTE | 2019-12-29 06:00 | NUR ---
PT TRIED TO HAVE A BM X1 WITH NO SUCCESS. PT CAME OUT OF THE BATHROOM AND ASKED FOR MORPHINE FOR SEVERE PAIN WHICH WAS GIVEN IVP. PT ALSO GIVEN ORDERED FLAGYL. LAB DRAWS DONE AT BEDSIDE.
[2019-12-29] MEDS: ALBUTEROL SULFATE/IPRATROPIU 3 ML SOL IH SCH ×4 (06:58→21:20)
[2019-12-29] MEDS: BUDESONIDE 0.25 MG/2 ML NEBU INH SCH ×3 (06:59→21:20)
--- NOTE | 2019-12-29 07:25 | NUR ---
RECEIVED BEDSIDE SHIFT REPORT FROM MANAGER OF MAINTENANCE NURSE FOR CONTINUATION OF CARE. PATIENT COMPLAINS OF 10/10 ABDOMINAL PAIN WITH NO RELIEF FROM PRN NARCOTIC PAIN MEDICATION. LAST BM WAS 12/28/2019 AT APPROXIMATELY 2 PM, REPORTED STOOL WAS DIARRHEA. EDUCATED THE PATIENT ON THE IMPORTANCE OF REMAINING NPO FOR BOWEL REST, AND ENCOURAGED HEALTHY DIET UPON DISCHARGE TO PROMOTE A HEALTHY GUT AND PREVENT FUTURE INCIDENCE. BED IS IN LOW POSITION, CALL LIGHT ON AND WITHIN REACH WILL CONTINUE TO MONITOR.
[2019-12-29 07:37] LABS: CHOL/HDL RATIO 2.2 (1-4.5)
[2019-12-29 08:00] VITALS: BP 118/70
[2019-12-29] MEDS ORDERED: MORPHINE SULFATE 2 MG/ML SYR IVP PRN (08:30)
[2019-12-29] MEDS: HYDROcodone/APAP 5/325 MG 1 TAB TAB PO PRN ×2 (08:33→13:37)
[2019-12-29] MEDS: ONDANSETRON 4 MG/2 ML VIAL IM/IVP PRN ×2 (08:33→21:25)
[2019-12-29] MEDS: LACTOBACILLUS RHAMNOSUS GG 1 EACH CAP PO SCH (08:33)
--- NOTE | 2019-12-29 08:35 | NUR ---
PATIENT HAS BEEN SCREENED AND CATEGORIZED MODERATE NUTRITION RISK. PATIENT WILL BE SEEN WITHIN 3-5 DAYS OF ADMISSION. 12/31/19 01/02/[address]
--- NOTE | 2019-12-29 09:30 | NUR ---
PATIENT IS RESTING IN BED, MEDICATED FOR PAIN WITH NORCO, MEDICATIONS ADMINISTERED, MD ORDERED MORPHINE PRN FOR SEVERE PAIN, PATIENT WAS EDUCATED TO VERBALIZE PAIN BEFORE IT BECOMES SEVERE TO PREVENT BREAKTHROUGH PAIN, PATIENT VERBALIZED UNDERSTANDING. WILL CONTINUE TO MONITOR.
--- NOTE | 2019-12-29 12:00 | NUR ---
ROUNDS MADE, PATIENT IS ON THE PHONE WITH A FRIEND, PATIENT REPORTED BEING IN SEVERE PAIN TO THE POINT OF TEARS. PATIENT REPORTS CONSTIPATION. MEDICATION COLACE GIVEN FOR CONSTIPATION. AAOX4. BED IS IN LOW POSITION, CALL LIGHT ON AND WITHIN REACH. WILL CONTINUE TO MONITOR.
[2019-12-29 12:13] LABS: BASOPHILS # (AUTO) 0.1 K/uL (0.00-0.22); BASOPHILS % (AUTO) 0.4 % (0.0-2.0); EOSINOPHILS # (AUTO) 0.3 K/uL (0-0.4); EOSINOPHILS % (AUTO) 1.5 % (0.0-4.0); HEMATOCRIT 42.2 % (36-48); HEMOGLOBIN 13.4 g/dL (12.0-16.0); LYMPHOCYTES % (AUTO) 13.5 % (20.5-51.1); MEAN CORPUSCULAR HEMOGLOBIN 26 pg (27-31); MEAN CORPUSCULAR HGB CONC 32 g/dL (33-37); MEAN CORPUSCULAR VOLUME 83.3 fL (80-94); MONOCYTES # (AUTO) 1.5 K/uL (0.8-1.0); MONOCYTES % (AUTO) 6.8 % (1.7-9.3); NEUTROPHILS # (AUTO) 17.5 K/uL (1.8-7.7); NEUTROPHILS % (AUTO) 77.8 % (42.2-75.2); PLATELET COUNT (AUTO) 321 K/uL (140-450); RED BLOOD CELL COUNT(AUTO) 5.07 MIL/uL (4.20-5.40); RED CELL DISTRIBUTION WIDTH 15.4 % (11.6-13.7); WHITE BLOOD COUNT (AUTO) 22.5 K/uL (4.8-10.8)
[2019-12-29 12:18] LABS: ANION GAP 14.7 (8-16); CARBON DIOXIDE 24.1 mmol/L (21-32); CREATININE 0.7 mg/dL (0.6-1.3); POTASSIUM 3.8 mmol/L (3.5-5.1)
[2019-12-29] MEDS: DOCUSATE SODIUM 100 MG GELCAP PO PRN (13:37)
--- NOTE | 2019-12-29 14:32 | NUR ---
Trim Operator Note: Basic Screen: Yes High Risk DC Screen [place]: UNA Szymanski Relationship: Pre-Admission Living Arrangements: Lives with Other Prior ADL Independent Current Home Health Name/Tel: N/A Current DME/02 Name/Tel: N/A Current Hospice Name/Tel: N/A Current Dialysis Name/Tel: N/A Healthcare Decision Maker: Patient Advance Directive No Physician Orders for Life Sustaining Treatment Form No Patient/Family Have Educational Needs No Information Taught: Advance Directive Person Taught: Patient Teaching Tools: Verbal Participation Level: Refused Evaluation: Verbalizes Understanding Needs Additional Education: No Discipline: Case Mgt/Social Svcs Tentative Discharge Plan/Destination: No Needs Identified Will require assistance post discharge: No Referred to Prefitter: No Tentative Discharge Plan Summary: Patient is a 24-year-old female admitted for diverticulitis. Patient has PMHX of asthma and gestational HTN. Patient was admitted from home where she lives with significant other and two children. SW met with patient at bedside to verify demographics. Patient reports no history of mental health and no history of substance abuse. Patient's tentative discharge plan is to return home. No further needs identified. Signature: HAMLET Venegas Date: Dec 29, 2019 Time: 14:27
--- NOTE | 2019-12-29 14:35 | NUR ---
JOAN RUNNING PER PROTOCOL. ENDORSES EFFECTIVENESS OF NORCO MEDICATION. SKIN IS INTACT, AAOX4. WILL CONTINUE TO MONITOR.
[2019-12-29 16:00] VITALS: BP 115/78
--- NOTE | 2019-12-29 17:54 | NUR ---
PATIENT IS UP AND AMBULATING IN THE ROOM. DENIES BREAKTHROUGH PAIN AT THIS TIME. IV FLUID RUNNING. TOLERATING WELL. WILL CONTINUE TO MONITOR.
--- NOTE | 2019-12-29 19:35 | NUR ---
BEDSIDE SHIFT REPORT GIVEN TO INDUSTRIAL SERVICE TECHNICIAN NURSE FOR CONTINUATION OF CARE.
--- NOTE | 2019-12-29 19:40 | NUR ---
RECEIVED BEDSIDE REPORT FROM AM SHIFT RN FOR PT'S CONTINUITY OF CARE. PT IS AAOX4, AMBULATORY, VISITOR AT BEDSIDE, ON ROOM AIR, HAS RIGHT AC 22G, C/O PAIN, PT ALREADY MEDICATED. ORIENTED PT TO HOSPITAL AND SLICING MACHINE OPERATOR/TENDER ROUTINE, PT VERBALIZED UNDERSTANDING. SAFETY MEASURES IN PLACE, AND CALL LIGHT IS WITHIN REACH. WILL MONITOR PT THROUGHOUT SHIFT.
--- NOTE | 2019-12-29 21:25 | NUR ---
PT C/O NAUSEA. ADMINISTERED SCHEDULED AND PRN MEDICATIONS ORDERED. PT TOLERATED THEM WELL. PT STATES MORPHINE MIGHT BE THE ONE MAKING HER NAUSEOUS. WILL NOTIFY MD. PT'S NEEDS MET AT THIS TIME. WILL CONTINUE TO MONITOR PT.
[2019-12-30] VITALS: BP 114/62
--- NOTE | 2019-12-30 00:30 | NUR ---
VS CHECKED AND CHARTED. PT C/O ABD PAIN 03/31. ADMINISTERED PO PRN MEDICATION ORDERED. PT'S NEEDS MET AT THIS TIME. WILL CONTINUE TO MONITOR PT.
[2019-12-30] MEDS: HYDROcodone/APAP 5/325 MG 1 TAB TAB PO PRN ×2 (00:36→07:56)
--- NOTE | 2019-12-30 02:30 | NUR ---
PT LYING DOWN AWAKE, WATCHING TV. PT DENIES ANY PAIN AT THIS TIME. WILL CONTINUE TO MONITOR PT.
--- NOTE | 2019-12-30 04:30 | NUR ---
PT ASLEEP WITH NO SIGNS OF DISTRESS. WILL CONTINUE TO MONITOR PT.
[2019-12-30] MEDS: DEXT 5% /NACL 0.9% 1,000 ML IV SCH (05:22)
[2019-12-30] MEDS: metroNIDAZOLE 500 MG/NS PREMIX 100 ML IV SCH ×3 (05:22→20:47)
--- NOTE | 2019-12-30 05:22 | NUR ---
ADMINISTERED SCHEDULED IV ABX ORDERED. PT REQUESTED FOR BREATHING TMT. WILL CALL RT FOR REQUEST.
--- NOTE | 2019-12-30 06:50 | NUR ---
INFORMED PT THAT RT WILL BE COMING IN AT 0700 FOR REQUESTED BREATHING TREATMENT. PT IN STABLE CONDITION, SPOKE WITH PT, PT VERBALIZED UNDERSTANDING. WILL ENDORSE TO AM SHIFT RN FOR PT'S CONTINUITY OF CARE.
[2019-12-30 07:04] LABS: BASOPHILS # (AUTO) 0.1 K/uL (0.00-0.22); BASOPHILS % (AUTO) 0.4 % (0.0-2.0); EOSINOPHILS # (AUTO) 0.3 K/uL (0-0.4); EOSINOPHILS % (AUTO) 1.7 % (0.0-4.0); HEMATOCRIT 37.7 % (36-48); HEMOGLOBIN 12.1 g/dL (12.0-16.0); LYMPHOCYTES # (AUTO) 2.9 K/uL (2.5-16.5); LYMPHOCYTES % (AUTO) 17.4 % (20.5-51.1); MEAN CORPUSCULAR HEMOGLOBIN 26 pg (27-31); MEAN CORPUSCULAR HGB CONC 32 g/dL (33-37); MEAN CORPUSCULAR VOLUME 81.8 fL (80-94); MONOCYTES # (AUTO) 1.4 K/uL (0.8-1.0); MONOCYTES % (AUTO) 8.6 % (1.7-9.3); NEUTROPHILS # (AUTO) 11.8 K/uL (1.8-7.7); NEUTROPHILS % (AUTO) 71.9 % (42.2-75.2); PLATELET COUNT (AUTO) 294 K/uL (140-450); RED BLOOD CELL COUNT(AUTO) 4.61 MIL/uL (4.20-5.40); RED CELL DISTRIBUTION WIDTH 14.8 % (11.6-13.7); WHITE BLOOD COUNT (AUTO) 16.4 K/uL (4.8-10.8)
--- NOTE | 2019-12-30 07:10 | NUR ---
RECEIVE BEDSIDE REPORT FROM NIGHT NURSE, PT IS STABLE IN BED, RAC 22G RUNNING D51/2NS AT 80 ML, INTRODUCE SELF, UPDATE WHITEBOARD, CALL LIGHT WITHIN REACH.
[2019-12-30 07:51] LABS: ANION GAP 11.3 (8-16); CARBON DIOXIDE 26.5 mmol/L (21-32); PHOSPHORUS 3.8 mg/dL (2.5-4.9); POTASSIUM 3.8 mmol/L (3.5-5.1)
[2019-12-30 07:52] LABS: CREATININE 0.6 mg/dL (0.6-1.3)
--- NOTE | 2019-12-30 07:57 | NUR ---
GAVE NORCO FOR PAIN OG 6/10, SEVERE CRAMPING IN ABDOMEN, EDUCATION GIVEN PT TOLERATED WELL, CALL LIGHT WITHIN REACH.
[2019-12-30 08:00] VITALS: BP 137/73
[2019-12-30] MEDS: LACTOBACILLUS RHAMNOSUS GG 1 EACH CAP PO SCH (09:00)
--- NOTE | 2019-12-30 09:00 | NUR ---
GAVE ORDERED MEDICATION, EDUCATION GIVEN, PT VERBALIZE UNDERSTANDING, PT TOLERATED MEDICATION WELL, PT IS STABLE, CALL LIGHT WITHIN REACH.
[2019-12-30] MEDS ORDERED: NACL 0.9% 1,000 ML IV SCH (11:35)
--- NOTE | 2019-12-30 12:01 | NUR ---
DISCONNECTED PT FROM IV SO SHE COULD SHOWER, WALKED PT TO SHOWER, EXPLAINED SHOWER SAFETY AND HOW TO CALL FOR HELP, PT VERBALIZED UNDERSTANDING, PT WALKED WITH A STEADY GAIT TO SHOWER, PT IS STABLE, NO SIGNS OF DISTRESS NOTED, WILL CONTINUE TO MONITOR.
--- NOTE | 2019-12-30 13:51 | NUR ---
DC PLANN[age] YRS OLD FEMALE PATIENT WAS ADMITTED FROM HOME WITH A DX OF DIVERTICULITIS. PT HAS A HX OF ASTHMA. CT ABD/PELVIS SHOWED DIVERTICULITIS ,STARTED IV ROCEPHIN AND FLGYL BLOOD AND URINE CULTURE PENDING . RT PROTOCOL INITIATED , GI CONSULT SEEN BY DR PATRICK ORDERED BOWEL REST AND PAIN CONTROL AND RECOMMENDED COLONOSCOPY IN THE NEXT 2-3 MOTHS AND ADVANCED DIET. DC PLAN TO GO HOME WHEN STABLE CM TO FOLLOW.
[2019-12-30] MEDS: DOCUSATE SODIUM 100 MG GELCAP PO PRN (14:01)
[2019-12-30] MEDS: ALBUTEROL SULFATE/IPRATROPIU 3 ML SOL IH SCH ×2 (14:03→19:10)
[2019-12-30] MEDS: KETOROLAC 15 MG/ML VIAL IM PRN ×2 (14:38→20:59)
[2019-12-30] MEDS: DEXT 5% / NACL 0.45% 1,000 ML IV SCH (14:38)
--- NOTE | 2019-12-30 14:38 | NUR ---
GAVE TORADOL IM TO PT FOR ABDOMINAL PAIN OF 8/10, EDUCATION GIVEN, PT TOLERATED WELL, PT STABLE, CALL LIGHT WITHIN REACH.
[2019-12-30 16:00] VITALS: BP 131/77
--- NOTE | 2019-12-30 17:00 | NUR ---
PT RESTING IN BED, PT IS STABLE, CALL LIGHT WITHIN REACH
[2019-12-30] MEDS: BUDESONIDE 0.25 MG/2 ML NEBU INH SCH (19:10)
--- NOTE | 2019-12-30 19:30 | NUR ---
GAVE BEDSIDE REPORT TO NIGHT NURSE FOR CONTINUITY OF CARE, PT IS STABLE
--- NOTE | 2019-12-30 19:31 | NUR ---
RECEIVED BEDSIDE REPORT FROM DAY SHIFT NURSE CAMERON RN, PT STABLE, NO DISTRESS NOTED, IV TO R AC 20G PATENT INTACT, INFUSING WELL, PT ON ROOM AIR, NO SOB NOTED, PT STATED HAVING HEADACHE, WILL MEDICATE, INITIAL ASSESSMENT DONE, ALL SAFETY PRECAUTION MET, CALL LIGHT WITHIN REACH, WILL CONTINUE TO MONITOR.
--- NOTE | 2019-12-30 19:41 | NUR ---
PT C/O HEADACHE PAIN MEDICATION PER DR ORDER GIVEN, TYLENOL, PT TOLERATED WELL, NO DISTRESS NOTED, CALL LIGHT WITHIN REACH, WILL CONTINUE TO MONITOR.
--- NOTE | 2019-12-30 20:59 | NUR ---
PT C/O PAIN, HEADACHE 05/31, WAS NOT REDUCED WITH TYLENOL EARLIER, PAIN MEDICATION PER DR ORDER ADMINISTERED TORADOL, PER DR. NORMA BATEMAN TO GIVE IVP INSTEAD OF IM. PT TOLERATED WELL, NO DISTRESS NOTED, CALL LIGHT WITHIN REACH, WILL CONTINUE TO MONITOR.
--- NOTE | 2019-12-30 23:42 | NUR ---
CHECKED ON PT, PT SLEEPING, NO DISTRESS NOTED, V/S TAKEN, WNL, CALL LIGHT WITHIN REACH, WILL CONTINUE TO MONITOR.
[2019-12-31] VITALS: BP 123/46
[2019-12-31] MEDS: DEXT 5% / NACL 0.45% 1,000 ML IV SCH ×2 (02:25→09:34)
[2019-12-31] MEDS: metroNIDAZOLE 500 MG/NS PREMIX 100 ML IV SCH ×3 (04:33→20:23)
--- NOTE | 2019-12-31 04:33 | NUR ---
PT ASKED IF SHE CAN HAVE A JUICE, TALKED TO DR. GREEN WHO SAID OK FOR PT TO HAVE JUICE, TO ADVANCE TOLERATED, PT HAD 1 BOX OF JUICE, TOLERATED WELL, NO DISTRESS NOTED, CALL LIGHT WITHIN REACH, WILL CONTINUE TO MONITOR.
[2019-12-31] MEDS: KETOROLAC 15 MG/ML VIAL IM/IVP PRN (04:37)
[2019-12-31 06:23] LABS: ANION GAP 13.8 (8-16); CARBON DIOXIDE 26.8 mmol/L (21-32); CREATININE 0.7 mg/dL (0.6-1.3); POTASSIUM 3.6 mmol/L (3.5-5.1)
[2019-12-31 06:27] LABS: MAGNESIUM 1.9 mg/dL (1.8-2.4)
[2019-12-31 06:32] LABS: BASOPHILS # (AUTO) 0.1 K/uL (0.00-0.22); BASOPHILS % (AUTO) 0.7 % (0.0-2.0); EOSINOPHILS # (AUTO) 0.6 K/uL (0-0.4); EOSINOPHILS % (AUTO) 5.3 % (0.0-4.0); HEMATOCRIT 36.9 % (36-48); HEMOGLOBIN 11.8 g/dL (12.0-16.0); LYMPHOCYTES # (AUTO) 1.7 K/uL (2.5-16.5); MEAN CORPUSCULAR HEMOGLOBIN 27 pg (27-31); MEAN CORPUSCULAR HGB CONC 32 g/dL (33-37); MEAN CORPUSCULAR VOLUME 82.9 fL (80-94); MONOCYTES % (AUTO) 8.5 % (1.7-9.3); NEUTROPHILS # (AUTO) 8.6 K/uL (1.8-7.7); NEUTROPHILS % (AUTO) 71.5 % (42.2-75.2); PLATELET COUNT (AUTO) 270 K/uL (140-450); RED BLOOD CELL COUNT(AUTO) 4.46 MIL/uL (4.20-5.40); RED CELL DISTRIBUTION WIDTH 14.8 % (11.6-13.7)
--- NOTE | 2019-12-31 07:18 | NUR ---
ENDORSED TO DAY SHIFT NURSE CAMERON RN, PT STABLE, NO DISTRESS NOTED, CALL LIGHT WITHIN REACH.
--- NOTE | 2019-12-31 07:19 | NUR ---
RECEIVE BEDSIDE REPORT FROM NIGHT NURSE, PT IS ASLEEP, RESPIRATIONS ARE EVEN AND UNLABORED ON ROOM AIR, PT IS STABLE, UPDATE WHITE BOARD, R WRIST 22G RUNNING D5 1/2NS AT 80ML/H, SAFETY MEASURES IN PLACE, CALL LIGHT WITHIN REACH, WILL CONTINUE TO MONITOR.
[2019-12-31] MEDS: ALBUTEROL SULFATE/IPRATROPIU 3 ML SOL IH SCH ×3 (07:43→20:20)
[2019-12-31] MEDS: BUDESONIDE 0.25 MG/2 ML NEBU INH SCH ×2 (07:43→20:20)
[2019-12-31 08:00] VITALS: BP 126/77
[2019-12-31] MEDS: LACTOBACILLUS RHAMNOSUS GG 1 EACH CAP PO SCH (09:33)
--- NOTE | 2019-12-31 11:05 | NUR ---
PT SITTING IN BED TALKING TO FAMILY MEMBER, PT IS STABLE, NO SIGNS OF DISTRESS NOTED, RESPIRATIONS ARE EVEN AND UNLABORED, CALL LIGHT WITHIN REACH.
--- NOTE | 2019-12-31 12:38 | NUR ---
GAVE PT ORDERED MEDICATION METRONIDAZOLE, EDUCATION GIVE, PT VERBALIZE UNDERSTANDING, PT TOLERATED WELL, PT IS STABLE, CALL LIGHT WITHIN REACH.
--- NOTE | 2019-12-31 15:15 | NUR ---
PT IS RESTING IN BED, WATCHING TV, ALL NEEDS MED AT THIS TIME, NO SIGNS OF DISTRESS NOTED, RESPIRATIONS ARE EVEN AND UNLABORED Addendum: 12/31/19 at 1526 by Shala Vaca RN PT IS STABLE, CALL LIGHT WITHIN REACH
[2019-12-31 16:00] VITALS: BP 114/61
--- NOTE | 2019-12-31 17:42 | NUR ---
GAVE PT ICE CHIPS, PT IS SITTING WATCHING TV, PT IS STABLE, NO SIGNS OF RESPIRATORY DISTRESS NOTED, CALL LIGHT WITHIN REACH.
--- NOTE | 2019-12-31 19:25 | NUR ---
GAVE REPORT TO NIGHT NURSE FOR CONTINUITY OF CARE, PT IS STABLE.
--- NOTE | 2019-12-31 19:30 | NUR ---
RECEIVED BEDSIDE REPORT FROM AM SHIFT RN FOR PT'S CONTINUITY OF CARE. PT IS AAOX4, AMBULATORY, FAMILY MEMBER AT BEDSIDE, ON ROOM AIR, HAS RIGHT WRIST 22G WITH D5 1/2 NS AT 80 ML/HR, DENIES PAIN AT THIS TIME. EXPLAINED TO PT THE SENIOR ACCOUNTING CLERK ROUTINE, PT VERBALIZED UNDERSTANDING. SAFETY MEASURES IN PLACE, AND CALL LIGHT IS WITHIN REACH. WILL MONITOR PT THROUGHOUT THE SHIFT.
--- NOTE | 2019-12-31 20:23 | NUR ---
ADMINISTERED SCHEDULED IV ABX MEDICATION ORDERED. PT CURRENTLY RECEIVING BREATHING TREATMENT. PT C/O ABD PAIN 05/01. HEATING PAD IN PLACE. WILL MEDICATE PT FOR PAIN ACCORDING TO PAIN SCALE.
--- NOTE | 2019-12-31 20:28 | NUR ---
RECEIVED PT ON ROOM AIR WITH AN SP02 OF 98% AND A WHEEZING BREATH SOUNDS ON UPPER LOBES. NO RESPIRATORY DISTRESS NOTED AT THIS TIME. HHN TX GIVEN ORDERED WITH NO ADVERSE REACTION. CLEAR BREATH SOUNDS AFTER HHN TX. WILL CONITINUE TO MONITOR PT.
[2019-12-31] MEDS: HYDROcodone/APAP 5/325 MG 1 TAB TAB PO PRN (20:41)
--- NOTE | 2019-12-31 20:41 | NUR ---
ADMINISTERED PRN PO PAIN MEDICATION ORDERED. PT'S NEEDS MET AT THIS TIME. WARMING PAD IN USE. PT STATES SHE AMBULATED IN THE HALLWAY THIS AFTERNOON, HELPED WITH PAIN AND FEELING BLOATED. WILL CONTINUE TO MONITOR PT.
[2020-01-01] VITALS: BP 119/70
--- NOTE | 2020-01-01 | NUR ---
ICE PACKS Addendum: 01/01/20 at 0143 by Danelle Borja RN ADDITIONAL INFO: PT C/O PAIN ON THE IV SITE. REPORTED TO MD THAT PT IS HARD STICK. PER MD, APPLY COLD COMPRESS AND TRY TO MOVE AROUND. PT VERBALIZED UNDERSTANDING. IF PAIN IS UNRELIEVED, WILL START NEW IV INSERT.
--- NOTE | 2020-01-01 02:32 | NUR ---
MADE ROUNDS. PT ASLEEP WITH NO SIGNS OF DISTRESS. WILL CONTINUE TO MONITOR PT.
[2020-01-01] MEDS: DEXT 5% / NACL 0.45% 1,000 ML IV SCH ×2 (03:25→06:35)
--- NOTE | 2020-01-01 04:00 | NUR ---
NEW IV INSERTED: LEFT HAND 24G, DISCONTINUED THE RIGHT WRIST 22G, CATHETER TIP INTACT. ADMINISTERED SCHEDULED IV ABX ORDERED. PT TOLERATED THEM WELL. PT TEACHING GIVEN, PT VERBALIZED UNDERSTANDING. WILL CONTINUE TO MONITOR PT.
[2020-01-01] MEDS: metroNIDAZOLE 500 MG/NS PREMIX 100 ML IV SCH (04:08)
[2020-01-01] MEDS: KETOROLAC 15 MG/ML VIAL IM/IVP PRN (06:35)
--- NOTE | 2020-01-01 06:35 | NUR ---
PT C/O ABD PAIN 05/31 (FEELING BLOATED), ADMINISTERED IVP PAIN MEDICATION ORDERED. MD AT BEDSIDE, WILL ORDER SIMETHICONE FOR THE BLOATED FEELING. ASSISTED PT TO THE RESTROOM, PT TOLERATED IT WELL. WILL ENDORSE TO AM SHIFT RN FOR PT'S CONTINUITY OF CARE.
--- NOTE | 2020-01-01 07:05 | NUR ---
RECEIVED PATIENT FROM MEDICAL SCIENTIST NURSE FOR CONTINUITY OF CARE. PATIENT IS AAOX4, SAMI SPEAKING. RESPIRATIONS EVEN AND UNLABORED, ROOM AIR. VISIBLE CHEST RISE NOTED. NO EDEMA NOTED. ABDOMEN ROUND AND NONTENDER. PATIENT DENIES N/V. LAST BM 01/01/2020. REGULAR DIET. SKIN WARM, DRY, AND INTACT. IV IN THE LEFT HAND G24 RUNNING D51/2NS AT 80 ML/HR. PATIENT IS AMBULATORY. BED IN LOW POSITION. CALL LIGHT IS WITHIN REACH. WILL CONTINUE TO MONITOR
[2020-01-01] MEDS: BUDESONIDE 0.25 MG/2 ML NEBU INH SCH (07:18)
[2020-01-01] MEDS: ALBUTEROL SULFATE/IPRATROPIU 3 ML SOL IH SCH (07:18)
--- NOTE | 2020-01-01 07:51 | NUR ---
DR. SHARMA AND THE RESIDENT DOCTORS MADE ROUNDS
[2020-01-01 07:58] LABS: ANION GAP 13.2 (8-16); BASOPHILS # (AUTO) 0.1 K/uL (0.00-0.22); BASOPHILS % (AUTO) 0.6 % (0.0-2.0); CARBON DIOXIDE 25.7 mmol/L (21-32); CREATININE 0.6 mg/dL (0.6-1.3); EOSINOPHILS # (AUTO) 0.8 K/uL (0-0.4); EOSINOPHILS % (AUTO) 6.2 % (0.0-4.0); HEMATOCRIT 37.1 % (36-48); LYMPHOCYTES # (AUTO) 2.1 K/uL (2.5-16.5); LYMPHOCYTES % (AUTO) 16.3 % (20.5-51.1); MEAN CORPUSCULAR HEMOGLOBIN 26 pg (27-31); MEAN CORPUSCULAR HGB CONC 32 g/dL (33-37); MEAN CORPUSCULAR VOLUME 81.7 fL (80-94); MONOCYTES # (AUTO) 1.2 K/uL (0.8-1.0); MONOCYTES % (AUTO) 9.2 % (1.7-9.3); NEUTROPHILS # (AUTO) 8.7 K/uL (1.8-7.7); NEUTROPHILS % (AUTO) 67.7 % (42.2-75.2); PLATELET COUNT (AUTO) 314 K/uL (140-450); POTASSIUM 3.9 mmol/L (3.5-5.1); RED BLOOD CELL COUNT(AUTO) 4.54 MIL/uL (4.20-5.40); RED CELL DISTRIBUTION WIDTH 14.4 % (11.6-13.7); WHITE BLOOD COUNT (AUTO) 12.8 K/uL (4.8-10.8)
[2020-01-01 08:00] VITALS: BP 125/86
[2020-01-01 08:11] LABS: MAGNESIUM 1.9 mg/dL (1.8-2.4); PHOSPHORUS 3.5 mg/dL (2.5-4.9)
[2020-01-01] MEDS ORDERED: INUL1CTB PO ×2 (08:25→13:56)
[2020-01-01] MEDS ORDERED: LEVO500T98 PO ×2 (08:25→13:56)
[2020-01-01] MEDS ORDERED: METR250T2 PO ×2 (08:25→13:56)
[2020-01-01] MEDS: LACTOBACILLUS RHAMNOSUS GG 1 EACH CAP PO SCH (08:38)
--- NOTE | 2020-01-01 08:39 | NUR ---
GIVEN PROBIOTIC PO ORDERED. EXPLAINED TO PATIENT MED. PATIENT VERBALIZED UNDERSTANDING. BED IN LOW POSITION. CALL LIGHT IS WITHIN REACH. WILL CONTINUE TO MONITOR
[2020-01-01 09:23] VITALS: BP 125/86
--- NOTE | 2020-01-01 09:42 | NUR ---
GIVEN DISCHARGE INSTRUCTION. EXPLAINED TO PATIENT SHE NEEDS TO SEE HER PCP THIS 01/03 AT 1130 AND TO ASK HER PCP TO REFER HER TO GI DOCTOR. SHE NEEDS TO HAVE COLONOSCOPY IN 3 MONTHS. TAKE PRESCRIBED MEDICATIONS AND CONTINUE TAKING HOME MEDS. PATIENT VERBALIZED UNDERSTANDING. PATIENT SIGNED DISCHARGE PAPER.
--- NOTE | 2020-01-01 09:43 | NUR ---
PATIENT REFUSED FLU VACCINE.
--- NOTE | 2020-01-01 09:45 | NUR ---
DISCONTINUE IV. NO BLEEDING. SECURED WITH 2X2 AND TAPE. REMOVED PATIENT ID BAND. PATIENT IS CHANGING TO HOME CLOTHES
--- NOTE | 2020-01-01 09:50 | NUR ---
DISCHARGE PATIENT ON FOOT. WALKED PATIENT TO THE [facility]. BOYFRIEND PICKED UP PATIENT. PATIENT IS IN STABLE CONDITION. NO N/V. NO ABDOMINAL PAIN
== END 2020-01-01 09:50 | disposition home or self-care (01) | DRG 720 ==
LOC: MED 11:54 → MTU 16:43
PROVIDERS: ADMIT General Practice; ATTEND General Practice
DX: A41.9 Sepsis, unspecified organism (principal); E83.42 Hypomagnesemia; E66.9 Obesity, unspecified; J45.909 Unspecified asthma, uncomplicated; K57.80 Diverticulitis of intestine, part unspecified, with perforation and abscess without bleeding; F11.10 Opioid abuse, uncomplicated; Z68.38 Body mass index [BMI] 38.0-38.9, adult
CPT/HCPCS: 36415; 71045; 76856; 80048; 80053; 80305; 81003; 82150; 83036; 83605; 83690; 83735; 83880; 84100; 84443; 85025; 85610; 85730; 87040; 87081; 94640; 96361; 96365; 96375; 96376; 99285; J0696; J1885; J2270; J2405; J2543; J3475; J3490; J7030; J7042; J7060; J7620; J7626; Q0092; Q9967

== ENCOUNTER 2020-01-12 19:26 | Emergency (ER) | payer MEDICAID ==
[~2020-01-12] VITALS: Ht 160 cm; Wt 95.3 kg
[~2020-01-12 19:26] MED LIST changes: +INUL1CTB PO; +LEVO500T98 PO; +METR250T2 PO
[2020-01-12 20:00] VITALS: BP 144/90
--- NOTE | 2020-01-12 20:03 | NUR ---
TO LOBBY A/W BED AMBULATORY
--- NOTE | 2020-01-12 20:28 | NUR ---
PT AMBULATED TO BED 11
--- NOTE | 2020-01-12 21:11 | NUR ---
C/O UMBILICAL REGION CRAMPING PAIN 08/31 AT THIS TIME=--X3 DAYS LAST BM 2 DAYS AGO---CHRONIC STRAINING ADDS FREQUENCY, URGENCY, HESITANCY
[2020-01-12] MEDS ORDERED: KETOROLAC 30 MG/ML VIAL IM ONE (21:20)
[2020-01-12] MEDS ORDERED: HYDROcodone/APAP 5/325 MG 1 TAB TAB PO ONE (21:20)
--- NOTE | 2020-01-12 21:21 | NUR ---
TAKEN TO RADIOLOGY
[2020-01-12] MEDS ORDERED: MAGNESIUM CITRATE 300 ML BTL PO ONE (23:00)
[2020-01-12 23:08] VITALS: BP 128/81
--- NOTE | 2020-01-12 23:09 | NUR ---
Patient discharged with v/s stable. Written and verbal after care instructions given and explained. Patient alert, oriented and verbalized understanding of instructions. Ambulatory with steady gait. All questions addressed prior to discharge. ID band removed. Patient advised to follow up with PMD. Rx of BENTYL given. Patient educated on indication of medication including possible reaction and side effects. Opportunity to ask questions provided and answered.
== END 2020-01-12 23:09 | disposition home or self-care (01) ==
LOC: MED 19:26
DX: K59.00 Constipation, unspecified (principal); K57.92 Diverticulitis of intestine, part unspecified, without perforation or abscess without bleeding; J45.909 Unspecified asthma, uncomplicated; Z79.899 Other long term (current) drug therapy
CPT/HCPCS: 74018; 81002; 81025; 96372; 99283; J1885

== ENCOUNTER 2020-01-19 16:56 | Emergency (ER) | payer MEDICAID ==
[~2020-01-19] VITALS: Ht 160 cm; Wt 89.8 kg
--- NOTE | 2020-01-19 17:04 | NUR ---
PT TO ER BED 4
[2020-01-19 17:09] VITALS: BP 135/89
[2020-01-19] MEDS ORDERED: ALBUTEROL SULFATE/IPRATROPIU 3 ML SOL IH ONE (17:10)
--- NOTE | 2020-01-19 17:21 | NUR ---
RT AT BEDSIDE.
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
[2020-01-19 18:01] VITALS: BP 146/77
--- NOTE | 2020-01-19 18:01 | NUR ---
Patient discharged with v/s stable. Written and verbal after care instructions given and explained. Patient alert, oriented and verbalized understanding of instructions. Ambulatory with steady gait. All questions addressed prior to discharge. ID band removed. Patient advised to follow up with PMD. Rx of Albuterol, Prednisone, and MiniElite Standard Compressor Nebulizer System given. Patient educated on indication of medication including possible reaction and side effects. Opportunity to ask questions provided and answered.
== END 2020-01-19 18:01 | disposition home or self-care (01) ==
LOC: MED 16:56
DX: J45.901 Unspecified asthma with (acute) exacerbation (principal); R11.10 Vomiting, unspecified; Z79.899 Other long term (current) drug therapy
CPT/HCPCS: 94640; 99283; J7620

== ENCOUNTER 2020-02-03 23:42 | Emergency (ER) | payer MEDICAID ==
[~2020-02-03] VITALS: Ht 162.6 cm; Wt 90.3 kg
[2020-02-03 23:51] VITALS: BP 124/70
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
--- NOTE | 2020-02-04 00:08 | NUR ---
Gene trinh in [facility] - 02/04/20 at 0025 by MEDJJ PATIENT BROUGHT TO BED 10, MD OTT AT BEDSIDE, RT AT BEDSIDE
[2020-02-04] MEDS ORDERED: ACETAMINOPHEN EXTRA STRENGTH 500 MG TAB PO STA (00:37)
--- NOTE | 2020-02-04 00:55 | NUR ---
PATIENT STILL UNABLE TO URINATE FOR TEST, DR OTT MADE AWARE
--- NOTE | 2020-02-04 00:58 | NUR ---
DR OTT STATES HE IS FINE WITH CHEST XRAY WITHOUT BEING DONE BUT WANTS HER TO WEAR APRON DURING EXAM. RADIOLOGY MADE AWARE. PT STATES NO CHANCE OF
--- NOTE | 2020-02-04 01:03 | NUR ---
XR AT BEDSIDE.
--- NOTE | 2020-02-04 01:16 | NUR ---
PATIENT ALERT AND AWAKE, ON PHONE, BREATHING EVEN AND UNLABORED
--- NOTE | 2020-02-04 01:22 | NUR ---
PATIENT O2 SATURATION DROPPED TO 89%, PT PLACED BACK ONTO COOL MIST. DR OTT MADE AWARE
--- NOTE | 2020-02-04 02:34 | NUR ---
PATIENT ALERT AND AWAKE, BREATHING EVEN AND UNLABORED
[2020-02-04 02:50] VITALS: BP 118/64
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
== END 2020-02-04 02:50 | disposition home or self-care (01) ==
LOC: MED 23:42
DX: R07.89 Other chest pain (principal); J45.909 Unspecified asthma, uncomplicated; Z79.899 Other long term (current) drug therapy; V89.2XXA Person injured in unspecified motor-vehicle accident, traffic, initial encounter; Y93.89 Activity, other specified; Y92.89 Other specified places as the place of occurrence of the external cause; Y99.8 Other external cause status
CPT/HCPCS: 71045; 99283; Q0092

== ENCOUNTER 2020-02-08 11:36 | Emergency (ER) | payer MEDICAID ==
[~2020-02-08] VITALS: Ht 160 cm; Wt 90.7 kg
[2020-02-08 11:43] VITALS: BP 152/109
--- NOTE | 2020-02-08 11:54 | NUR ---
PT AMBULATED TO BED 4 W/ STEADY GAIT.
--- NOTE | 2020-02-08 12:09 | NUR ---
24 Y/O FEMALE C/O SOB WITH PRODUCTIVE COUGH X 2 WKS. RR EVEN AND UNLABORED, NO ACCESSORY MUSCLE USE. WHEEZING HEARD UPON AUSCULTATION. DENEIS FEVER/CHILLS. 5/10 CHEST PAIN PROVOKED BY COUGH. PT STATES SHE TOOK INHALER AND DID BREATHING TREATMENT AT HOME LAST NIGHT WITH NO RELIEF. AWAKE AND ALERT. X 1 SIDE RAIL RAISED, BED LOCKED AND IN LOW POSITION. VSS. MEDHX: ASTHMA ALLERGIES: NKA
[2020-02-08] MEDS ORDERED: ALBUTEROL SULFATE/IPRATROPIU 3 ML SOL IH ONE (13:10)
--- NOTE | 2020-02-08 13:12 | NUR ---
PT. TAKEN TO XRAY
--- NOTE | 2020-02-08 13:22 | NUR ---
pt. returned from xray
[2020-02-08] MEDS ORDERED: DEXAMETHASONE 10 MG/ML VIAL IM ONE (13:40)
[2020-02-08 14:48] VITALS: BP 124/88
--- NOTE | 2020-02-08 14:49 | NUR ---
Patient discharged with v/s stable. Written and verbal after care instructions given and explained. Patient alert, oriented and verbalized understanding of instructions. Ambulatory with steady gait. All questions addressed prior to discharge. ID band removed. Patient advised to follow up with PMD. Rx of ALBUTEROL INH AND NEB, MEDROL given. Patient educated on indication of medication including possible reaction and side effects. Opportunity to ask questions provided and answered.
== END 2020-02-08 14:49 | disposition home or self-care (01) ==
LOC: MED 11:36
DX: J45.901 Unspecified asthma with (acute) exacerbation (principal); Z79.899 Other long term (current) drug therapy
CPT/HCPCS: 71045; 71120; 94640; 96372; 99284; J1100

== ENCOUNTER 2020-05-25 03:58 | Emergency (ER) | payer MEDICAID ==
[~2020-05-25] VITALS: Ht 160 cm; Wt 94.3 kg
[2020-05-25 04:09] VITALS: BP 135/93
--- NOTE | 2020-05-25 04:11 | NUR ---
PT TRIAGED AND LEFT IN TENT.
[2020-05-25] MEDS ORDERED: ALBUTEROL SULFATE/IPRATROPIU 3 ML SOL IH ONE (04:55)
--- NOTE | 2020-05-25 05:10 | NUR ---
CALLED RT FOR ETA ON BREATHING TX ADMINISTRATION.
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
--- NOTE | 2020-05-25 05:43 | NUR ---
PT STARTED ON DUO-NEB NEBULIZER TX. TOLERATED WELL. NADR
[2020-05-25] MEDS ORDERED: predniSONE 20 MG TAB PO ONE (06:00)
--- NOTE | 2020-05-25 06:05 | NUR ---
PT MEDICATED WITH PREDNISONE PO. TOLERATED WELL. CHRISTINA
[2020-05-25 06:13] VITALS: BP 146/92
--- NOTE | 2020-05-25 06:13 | NUR ---
Patient discharged with v/s stable. Written and verbal after care instructions given and explained. Patient alert, oriented and verbalized understanding of instructions. Ambulatory with steady gait. All questions addressed prior to discharge. ID band removed. Patient advised to follow up with PMD. Rx of albuterol sulfate, albuterol and prednisone given. Patient educated on indication of medication including possible reaction and side effects. Opportunity to ask questions provided and answered.
== END 2020-05-25 06:13 | disposition home or self-care (01) ==
LOC: MED 03:58
DX: O26.891 Other specified pregnancy related conditions, first trimester (principal); J45.901 Unspecified asthma with (acute) exacerbation; Z79.899 Other long term (current) drug therapy
CPT/HCPCS: 94640; 99283; J7512

== ENCOUNTER 2020-08-18 15:36 | Emergency (ER) | payer MEDICAID ==
[~2020-08-18] VITALS: Ht 162.6 cm; Wt 97.5 kg
[2020-08-18 15:41] VITALS: BP 157/78
--- NOTE | 2020-08-18 15:43 | NUR ---
AMBULATED TO BED 9
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
--- NOTE | 2020-08-18 16:00 | NUR ---
RT AT BEDSIDE
[2020-08-18] MEDS: ALBUTEROL SULFATE/IPRATROPIU 3 ML SOL IH ONE (16:10)
[2020-08-18] MEDS: predniSONE 20 MG TAB PO ONE (16:13)
[2020-08-18 16:40] VITALS: BP 157/78
--- NOTE | 2020-08-18 16:40 | NUR ---
Patient discharged with v/s stable. Written and verbal after care instructions given and explained. Patient alert, oriented and verbalized understanding of instructions. Ambulatory with steady gait. All questions addressed prior to discharge. ID band removed. Patient advised to follow up with PMD. Rx of MICRO PLUS NEBULIZER, ALBUTEROL, CETIRIZINE, DUONEB given. Patient educated on indication of medication including possible reaction and side effects. Opportunity to ask questions provided and answered.
== END 2020-08-18 16:40 | disposition home or self-care (01) ==
LOC: MED 15:36
DX: J45.901 Unspecified asthma with (acute) exacerbation (principal); Z79.899 Other long term (current) drug therapy
CPT/HCPCS: 94640; 99283; J7512

== ENCOUNTER 2021-10-12 05:22 | Emergency (ER) | payer MEDICAID, SELFPAY ==
[~2021-10-12] VITALS: Ht 160 cm; Wt 95.7 kg
[~2021-10-12 05:22] MED LIST changes: +ALBU-118 IH; -ALBU-136 IH; +LEVO-315 PO; -LEVO500T98 PO; +METR-520 PO; -METR250T2 PO
[2021-10-12 05:25] VITALS: BP 162/99
--- NOTE | 2021-10-12 05:32 | NUR ---
PT AMBULATED TO BED 12.
[2021-10-12] MEDS ORDERED: ALBUTEROL SULFATE/IPRATROPIU 3 ML SOL IH ONE (06:20)
[2021-10-12] MEDS ORDERED: AZITHROMYCIN 250 MG TAB PO ONE (06:20)
--- NOTE | 2021-10-12 06:27 | NUR ---
PATIENT ALERT ORIENTED NOT COMPLAINING OF PAIN VITAL SIGNS IN NORMAL LIMITS NOT WHEEZING WAS HEARED FROM LUNG SPO2 98 RA //DiCaprio RN
[2021-10-12] MEDS ORDERED: AZIT250T4 PO (06:32)
[2021-10-12] MEDS ORDERED: ALBU0.0912 IH (06:32)
[2021-10-12] MEDS ORDERED: PRON INH (06:32)
[2021-10-12 06:44] VITALS: BP 132/70
--- NOTE | 2021-10-12 06:46 | NUR ---
PATIENT DC HOME STABLE FEELING WELL NOT COMPLAINING OF PAIN ALERT ORIENTED X4 ALL DC INSTRUCTION GAVE AND EXPLAINED ALONG MARIANA PRESCTRIPTION WE RECOMEND TO COMING BACK TO ER IF THE SYMPTMS GET WORSE OR DOESNT IMPROVING ALSO FOLLOW UP WITH PCP //Nola RN
== END 2021-10-12 06:46 | disposition home or self-care (01) ==
LOC: MED 05:22
DX: O99.511 Diseases of the respiratory system complicating pregnancy, first trimester (principal); J45.901 Unspecified asthma with (acute) exacerbation; Z20.822 Contact with and (suspected) exposure to COVID-19; Z3A.09 9 weeks gestation of pregnancy; Z79.51 Long term (current) use of inhaled steroids; Z79.2 Long term (current) use of antibiotics; Z79.899 Other long term (current) drug therapy
CPT/HCPCS: 94640; 99283